=== PATIENT | female | born 2005 | race Caucasian/White ===

== ENCOUNTER 2025-05-02 13:11 | Outpatient (AMB) | payer OTHER, SELFPAY ==
--- NOTE | 2025-05-02 13:13 | MHC.PC.OV ---
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: No Accompanied by: Mother Allergies cat dander (cats) Allergy (Mild, Verified 05/02/25 13:24) Itchy Eyes dog dander (dogs) Allergy (Mild, Verified 05/02/25 13:24) Itchy Eyes Medication List - Last Reconciled 05/02/25 by Ioana Thomas PA-C albuterol sulfate 90 mcg/actuation (Ventolin HFA) 1 inh inhalation QID cetirizine (Zyrtec) 10 mg PO DAILY PRN desogestrel-ethinyl estradiol 0.15-0.03 mg (Apri) 1 tab PO DAILY Tobacco use date assessed: 05/02/25 Dental Screening Dental Screen Date: 05/02/25 Did you have a dental visit in the last 12 months?: No Did you have a dental problem in the last 6 months where you did not have access to dental care?: No Was dental information given to patient?: Patient has dentist HPI 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 Presenting for a new patient visit to establish primary care. The patient reports a history of asthma, for which an albuterol inhaler is used as needed, approximately once or twice a week at most. The patient has been taking Apri to regulate historically heavy and painful periods but feels it is no longer helping and may be impacting mental health. 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 The patient has a counselor at school who is seen biweekly, which has been helpful. [facility] Family History Paternal Grandfather Heart attack Paternal Grandmother Stroke Social History Alcohol intake: current Patient Tobacco Use Status: Never used Tobacco e-Cigarette/Vaping Use: Never Used Current occupational status: employed and student Cognitive needs: No Hearing needs: No Vision needs: No Female Reproductive History Menstrual control method: pills Total pregnancies: 0 Questionnaire PHQ-9 Over the last 2 weeks, how often have you been bothered by any of the following problems? 1. Little interest or pleasure in doing things: several days 2. Feeling down, depressed, or hopeless: several days 3. Trouble falling or staying asleep, or sleeping too much: several days 4. Feeling tired or having little energy: several days 5. Poor appetite or overeating: several days 6. Feeling bad about yourself - or that you are a failure or have let yourself or your family down: several days 7. Trouble concentrating on things, such as reading the newspaper or watching television: more than half the days 8. Moving or speaking so slowly that other people could have noticed. Or the opposite - being so fidgety or restless that you have been moving around a lot more than usual: several days 9. Thoughts that you would be better off or of hurting yourself in some way: not at all Total score: 9 Depression Screening Interpretation: Positive Depression Screening Follow-up: Existing condition and In treatment Depression Screening Done: Yes 22473 - PHQ-9 Billing: Yes Source: Developed by Drs. Hung Beltre, Robina Powell, John White and colleagues, with an educational porsha from [employer]. Thrive Questionnaire Date Thrive assessed: 05/02/25 I am a: Patient What is your living situation today?: I have a steady place to live Within the past 12 months, did the food you bought not last and you didn't have the money to get more?: Never true Within the past 12 months, did you worry whether your food would run out before you got money to buy more?: Never true Do you have trouble paying for medicines?: No Do you have trouble getting transportation to medical appointments?: No Do you have trouble paying your heating and electricity bill?: No Do you have trouble taking care of your child, family member or friend?: No Do you have trouble with day-to-day activities such as bathing, preparing meals, shopping, managing finances, etc.?: No Are you currently unemployed and looking for a job?: No Are you interested in more education?: Yes Please select the resources that you would like help with: None Currently or been in a relationship where the following occur: No concerns reported THRIVE Score: 0 AUDIT C Alcohol Use Questionnaire (AUDIT-C) 1. How often do you have a drink containing alcohol?: Monthly or less 2. How many drinks containing alcohol do you have on a typical day when you are drinking?: 1 or 2 3. How often do you have six or more drinks on one occasion?: Never Total Score: 1 Score Reviewed/Action Taken: Yes RITA-7 AMB Questionnaire RITA-7 Date RITA - 7 assessed: 05/02/25 Feeling nervous, anxious, or on edge: 1 = Several days Not being able to stop or control worryin = Several days Worrying too much about different things: 1 = Several days Trouble relaxin = Several days Being so restless that it is hard to sit still: 1 = Several days Becoming easily annoyed or irritable: 1 = Several days Feeling afraid as if something awful might happen: 1 = Several days Total RITA-7 score (0-4 normal; 5-9 mild; 10-14 moderate; 15-21 severe): 7 Source: Developed by Drs. Hung Beltre, Robina Powell, John White and colleagues, with an educational porsha from [employer]. RITA-7 Assessment Billing RITA-7 Assessment Tool: RITA-7 Assessment 95232 Review of Systems Const Denies body aches, Denies chills, Denies fever(s), Denies headache(s) and Denies poor appetite Eyes Reports no additional complaints ENT Denies dysphagia, Denies dizziness, Denies headache(s) and Denies odynophagia Card Denies chest pain, Denies syncope, Denies edema, Denies irregular heart rhythm, Denies lightheadedness and Denies dyspnea Resp Denies cough and Denies dyspnea GI Denies abdominal pain, Denies constipation, Denies dysphagia, Denies diarrhea, Denies nausea, Denies odynophagia and Denies vomiting Reports no additional complaints Musc Reports no additional complaints and Denies abnormal gait Skin/Breast Reports system reviewed and no additional complaints, except as documented Neuro Denies abnormal gait, Denies dizziness, Denies syncope and Denies headache(s) Psych Reports no additional complaints Physical exam (Primary Care) Vital Signs: Last Vital Signs Pulse 86 05/02/25 13:18 Resp 18 05/02/25 13:18 BP 100/66 05/02/25 13:18 Pulse Ox 99 05/02/25 13:18 Oxygen Delivery Method Room Air 05/02/25 13:18 BMI result Body Mass Index 21.2 Tobacco/Smoking Status: Tobacco use Status Tobacco use date assessed 05/02/25 05/02/25 13:27 Patient Tobacco Use Status Never used Tobacco 05/02/25 13:27 e-Cigarette/Vaping Use Never Used 05/02/25 13:27 PHQ-9: PHQ-9 Score PHQ-9: Total score 9 05/02/25 14:57 Depression Screening Interpretation: Positive Depression Screening Follow-up: Existing condition and In treatment Thrive Assessment: Date of Thrive Assessment Date Thrive assessed 05/02/25 05/02/25 13:27 Currently or been in a relationship where the following occur: No concerns reported Const General: cooperative, healthy appearing, comfortable and no acute distress Orientation/consciousness: patient oriented x3 HENMT Head: Yes normocephalic Ears: hearing grossly normal bilaterally General nose exam: Normal external nose present Eyes General: appearance normal, both eyes and all related structures Conjunctivae: conjunctivae normal Neck Neck: Yes full ROM and Yes no lymphadenopathy Resp Effort & Inspection: normal respiratory effort Auscultation: clear to auscultation bilaterally, no crackles, no rales, no rhonchi and no wheezes Cardio Rate: regular rate Rhythm: regular rhythm Skin General skin exam: no rashes or lesions noted Neuro General: patient oriented x3 Gait exam (Neuro): Normal gait present Extrem General: Yes normal to inspection, Yes full ROM and No edema Psych Affect: normal affect Attitude: cooperative Insight: Good insight present (Psych) Judgement: Good judgement present (Psych) Office Procedures Flu Questionnaire Does the patient have a severe egg allergy?: No Does the patient have severe life threatening allergies?: No Does the patient have a fever or illness today?: No Has the patient ever had Guillain-[place] Syndrome?: No Has the patient ever had any past reaction to a flu shot?: No Immunizations Fluarix [id number] (PF) 45 mcg (15 mcg x 3)/0.5 mL IM syringe Performing Provider: Ioana Thomas PA-C [facility] Administered by: TRAN Jordan on 05/02/25 13:58 Dose Route Admin Location Dispensed Lot Number Expiration Date NDC Data Entry 0.5 mL IM Left Deltoid 0.5 mL [id number] 11/28/25 [id number] [employer] VIS Given Date VIS Provided VIS Publication Date 05/02/25 Single Vaccine 24 Eligibility Eligibility Date Funding Source Not [facility] Eligible 05/02/25 Private Coding Level of Care Code New Pt Level 4 (81152) Diagnoses Depression F32.A Anxiety F41.9 Asthma J45.909 Contraceptive management Z30.9 Additional Codes RITA-7 Assessment Billing - RITA-7 Assessment Tool: RITA-7 Assessment 65533 ([id number]) PHQ-9 - 55993 - PHQ-9 Billing: Yes ([id number]) Assessment & Plan Assessment & Plan (1) Depression: Comment: Zachary Timmons at [facility] biweekly Code(s): F32.A - Depression, unspecified Category: Medical Plan: The patient endorsed a positive depression screen, which is attributed to a lack of motivation and significant academic stress. The patient is engaged in biweekly counseling and finds it helpful, declining pharmacotherapy at this time. Non-pharmacologic stress management techniques were recommended, including deep breathing. (2) Anxiety: Comment: Zachary Timmons at [facility] biweekly Code(s): F41.9 - Anxiety disorder, unspecified Category: Medical Plan: See above (3) Asthma: Code(s): J45.909 - Unspecified asthma, uncomplicated Category: Medical Plan: Asthma currently controlled on present medications. Continue on albuterol as needed.? Avoid triggers such as allergies. (4) Contraceptive management: Code(s): Z30.9 - Encounter for contraceptive management, unspecified Category: Medical Plan: The patient wants to discontinue Apri oral contraceptive pills, citing concerns about mood effects and lack of efficacy for period regulation. The patient was counseled that stopping the medication without a taper is acceptable and was advised about potential for menstrual irregularities for up to six months. The importance of safe sex for STD prevention was also discussed. The medication will be removed from the patient's active medication list. Plan This note was constructed using voice recognition software. While every effort has been made to ensure accuracy and ticket taker, still areas may have been included sometimes these areas may affect the content or meeting of the given symptoms. Total time spent caring for the patient today was 30 minutes. This includes time spent before the visit reviewing the chart, time spent during the visit, and time spent after the visit and documentation. Patient was informed and verbally consented to the use of an ambient scribe for clinic note documentation during this visit. Orders: Orders Vitamin B12 and Folate 05/02/25 J45.909 - Unspecified asthma, uncomplicated, Z13.21 - Encounter for screening for nutritional disorder Complete Blood Count Auto Diff 05/02/25 J45.909 - Unspecified asthma, uncomplicated, Z13.0 - Encounter for screening for diseases of the blood and blood-forming organs and certain disorders involving the immune mechanism CT NG by PCR Urine 05/02/25 Z11.3 - Encounter for screening for infections with a predominantly sexual mode of transmission Influenza [id number] Immunization 05/02/25 Z23 - Encounter for immunization TSH reflex Free T4 05/02/25 J45.909 - Unspecified asthma, uncomplicated, Z13.29 - Encounter for screening for other suspected endocrine disorder Vitamin D 25-OH Total 05/02/25 J45.909 - Unspecified asthma, uncomplicated, Z13.21 - Encounter for screening for nutritional disorder Comprehensive Met. Panel 05/02/25 J45.909 - Unspecified asthma, uncomplicated, Z00.00 - Encounter for general adult medical examination without abnormal findings UA CC w/rflx Micro + Cult 05/02/25 R35.89 - Other polyuria Referrals JOURNALIST Referral Z12.4 - Encounter for screening for malignant neoplasm of cervix
[2025-05-02 13:18] VITALS: BP 100/66; PULSE 86; RESP 18; O2SAT 99; BMI 21.2
--- OUTSIDE RECORDS SUMMARY | 2025-05-02 15:09 | XMS_ITS ---
Author Name [facility] Organization Unknown Care Team Organization Name Specialty Phone Email Start Date End Da te [facility] Rachael Roberto Primary Care 09/02/2022 01/18/20 [facility] Fabiana Harrington Primary Care 04/08/202212/30
--- OUTSIDE RECORDS SUMMARY | 2025-05-02 15:09 | XMS_ITS | Clinical Summary ---
Author Organization [address] [place] [address] [place] [id number] Phone Care Team Providers Care Clearing Supervisor Name Role Phone Julia Allen NP Primary Care Provider [phone] Allergies Active Allergy Reactions Criticality Noted Date Comments Other 02/24/2024 Medications fluticasone propionate (FLONASE) 50 mcg/actuation nasal spray SPRAY 1 SPRAY INTO EACH NOSTRIL DAILY 32 mL 1 04/18/2024 Active albuterol HFA (PROAIR HFA ; PROVENTIL HFA ; VENTOLIN HFA) 90 mcg/actuation inhaler Inhale 2 Puffs into the lungs every 4 hours as needed for Cough or Wheezing. 02/24/2024 Active cetirizine (ZyrTEC) 10 mg tablet TAKE 1 TABLET BY MOUTH EVERY DAY 08/05/2023 Active desogestreL-eth inyl estradioL (Apri) 0.15-0.03 mg per tablet TAKE 1 TABLET BY MOUTH EVERY DAY 84 tablet 02/27/2025 Active Active Problems Problem Noted Date Diagnosed Date Intermenstrual bleeding 06/28/2024 Assessment & Plan (06/28/2024 3:20 PM EST): I counseled Kate that this can happen at times of high stress or even without. If it is not an ongoing problem, no reason for further evaluation. I recommended she work on stress reduction with pressure points at work and regular use of her yoga. She agreed to call if recurs. COVID-19 virus infection 06/11/2021 Overview (04/27/2024): Positve at home test 06/16/21 + PCR Acne vulgaris 04/21/2016 Overview (04/27/2024): 06/20 skin care Gastroesophageal reflux disease without esophagi tis 06/10/2015 Overview (04/27/2024): 04/15 Started on prilosec, unable to wean 06/12/16: seen by siva Urbina, slowly wean off of prilosec and check if sx resume. Lactose breath test. If sx resume s/p wean, consider upper endoscopy. 07/28/16: neg lactose breath test. Sx resumed after 2 weeks of weaning off of prilosec. Schedule upper endoscopy, ph impedance probe. F/u 2 weeks after procedure 08/04/16: nl upper endoscopy, multiple biopsies taken, c/w reflux esophagitis. Ph probe, significant acid reflux. Omeprazole 40 mg po qd, avoid food triggers, obtain gastrin level, f/u 3 months Scoliosis 04/17/2015 Overview (04/27/2024): 04/15 Nl xray 04/16: 13 degree curvature. Post menarche 06/20 no change 09/20 no change Seasonal allergies 11/02/2011 Overview (04/27/2024): 06/27/15: mildy positive allergy testing to dog dander, shital grass, otherwise negative Other constipation 10/26/2009 Encounters Date Type Department Care Team Description 02/26/2025 Telephone Pediatrics - [place] [address] [place] [address] Julia Allen NP from Last 3 Months Immunizations Immunization Administration Dates Next Due DTaP (Infanrix) 6wks to less than 7yo ,05/02/2004,03/18/2004,01/18 DTaP / Hib 02/17/2005 ULpF-UIM-XOH (Pentacel) 2mo to less than 5yo 05/22/2004,03/18/2004,01/19/2004 H1N1 Inj Preservative Free 09/06/2009,06/07/2009 HPV 9-valent (Gardisil) 9yo to less than 46yo 09/17/2015,06/08/2015,04/17/2015 Hepatitis B Pediatric (Enger ix B; Recombivax HB) to less than 20 yo 08/16/2004,2003,2003 IPV Inactivated polio (Ipol) 6wks and older 01/05/2008,08/16/2004,03/18/2004,01/18 Influenza Quadrivalent, 0.5m l, preservative free (Fluarix; FluLaval; Fluzone) ages 6mo and older (Afluria) 3yo and older 03/26/2021,04/05/2019,03/04/2018 Influenza Quadrivalent, with preservative (Fluzone; Afluria) 6mo and older 03/22/2020 Influenza trivalent, 0.5mL, preservative free (Fluarix; FluLaval; Fluzone) ages 6mo and older (Afluria) 3 years and older 02/23/2017,03/29/2016,03/21/2015,04/13 Influenza trivalent, with pr eservative (Fluzone; Afluria) 6mo and older 04/11/2013,03/22/2012,02/26/2011,02/06,06/07/2009 MMR, measles mumps and rubel la Live (Priorix; M-M-R II) 12mo and older 02/02/2009,02/17/2005 Meningococcal MCV4P 07/26/2020,04/17/2015 Pneumococcal Conjugate Vacci ne, 7 Valent 11/27/2004,05/21/2004,03/18/2004,01/18 Tdap Tetanus diptheria acell ular pertussis (Boostrix; Adacel) 7yo and older 11/23/2014 Varicella live (Varivax) 12m o and older 02/02/2009,11/27/2004 Surgical History Surgery Date Site/Laterality Comments OTHER SURGICAL HISTORY PROCEDURE: DENIES PREVIOUS SURGERY Medical History Medical History Date Comments 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 D X:Failure to thrive in childhood; COMMENT: poor wt gain after 12 mos Acute suppurative otitis med ia without spontaneous rupture of eardrum 11/25/2005 DX:Acute suppurative ot itis media without spontaneous rupture of eardrum; COMMENT: 09/03, 04/05, 04/07, 08/14 rigth zithromax 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 Middleton. Nl spirometry. Without major change post albuterol. Sinus and chest xray negative IgE 77 (nl) /RAST (nl) empirically started on Advair 250 BId for 2 weeks. F/u 2 weeks Eczema 04/11/2013 DX:Eczema History of early menarche 01/31/2016 DX:His tory of early menarche Amblyopia of left eye 02/26/2011 DX:Amblyop ia of left eye; COMMENT: 04/14: no more glasses 05/15: next appt COVID-19 virus infection 06/11/2021 DX:COVI D-19 virus infection; COMMENT: Positve at home test 06/16/21 + PCR Hypovitaminosis D 04/26/2018 DX:Hypovitamin osis D; COMMENT: 04/18 Level 10. Given 50,000 IU weekly x 6 weeks then recehck labs. 06/19 Up to 93. Will have her take Vitamin D 1000 IU every other day 06/20 Rechecking lab Family History Medical History Relation Name Comments Allergies Father pgf Asthma Father Other: hyperthroid Father radiation and on replacement Eczema Father's side Other: heart Other 1 paternal uncle Other cancer Other 2 Hypertension Paternal Grandfather Diabetes Paternal Grandmother Relation Name Status Comments Father Alive 03/14/84 Father's side Mother Alive 09/21/83 Other 1 Other 2 Paternal Grandfather Paternal Grandmother Social History Tobacco Use Types Packs/Day Years Used Date Smoking Tobacco: Never Smokeless Tobacco: Never Alcohol Use Standard Drinks/Week Comments No 0 (1 standard drink = 0.6 oz pur e alcohol) Comments No Sex and Gender Information Value Date Recorded Sex Assigned at Female 04/13/2025 2:24 PM EST Legal Sex Female 3:41 PM EST Gender Identity Female 04/13/2025 2:24 PM EST Sexual Orientation Not on file Obstetrics History Last Filed Vital Signs Vital Sign Reading Time Taken Comments Blood Pressure 110/70 06/28/2024 2:58 PM EST Pulse 80 06/28/2024 2:58 PM EST Temperature 38.6 C (101.5 F) 04/11/2024 1:56 PM EST Respiratory Rate 16 06/28/2024 2:58 PM EST Oxygen Saturation 98% 04/11/2024 1:56 PM EST Inhaled Oxygen Concentration - - Weight 56.2 kg (124 lb) 06/28/2024 2:58 PM EST Height 157.5 cm (5' 2 ) 06/28/2024 2:58 PM EST Body Mass Index 22.68 06/28/2024 2:58 PM EST Plan of Treatment Health Maintenance Due Date Last Done Comments Meningococcal B Vaccine (1 of 2 - Standard) 2019 HIV Screening 05/10/2022 Hepatitis C Screening 05/10/2022 Social Influencers of Health Screening 05/10/2022 Depression Screening 06/01/2024 10/09/2023 Annual Well Child Visit (3-21 years old) 10/08/2024 10/09/2023, 09/18/2022, 09/16/2021, Additional history exists Gonorrhea/Chlamydia Screening 10/08/2024 10/09/2023 Cervical Cancer Screening: Pap Smear 11/16/2024 DTaP,Tdap,and Td Vaccines (7 - Td or Tdap) 11/23/2024 11/23/2014, 01/05/2008, 02/17/2005, Additional history exists COVID-19 Vaccine ( - season) 2025 Influenza Vaccine (#1) 2025 , 03/26/2021, 03/22/2020, Additional history exists RSV Immunization Adult Patients (1 - 1-dose 75+ series) 11/16/2078 Hepatitis B Vaccines Completed 08/16/2004, 2003, 2003 Pneumococcal Vaccine: Pediatrics (0 to 5 Years) and At-Risk Patients (6 to 49 Years) Completed 11/27/2004, 05/21/2004, 03/18/2004, Additional history exists HIB Vaccines Completed 02/17/2005, 05/02, 05/22/2004, Additional history exists IPV Vaccines Completed 01/05/2008, 07/30, 05/22/2004, Additional history exists MMR Vaccines Completed 02/02/2009, 02/17/2005 Varicella Vaccines Completed 02/02/2009, 11/27/2004 HPV Vaccines Completed 09/17/2015, 12/2015, 04/17/2015 Meningococcal ACWY Vaccine Completed 07/26/2020, Hepatitis A Vaccines Aged Out No long er eligible based on patient's age to complete this topic RSV Immunization Patients Under 20 months Aged Out No longer eligible based on patient's age to complete this topic Procedures Procedure Name Priority Date/Time Associated Diagnosis Comments DEPRESSION SCREENING Routine 10/09/2023 GONORRHEA/CHLAMYDIA SCRREENING Routine 10/09/2023 from Last 3 Months or Most Recently Relevant to Health Maintenance Results * Depression Screening (10/09/2023) Depression Screening abstracted Historical Provider MD HEALTH MAINTENANCE Final Result * Gonorrhea/Chlamydia Screening (10/09/2023) Gonorrhea/Chla mydia Screening abstracted us Historical Provider MD HEALTH MAINTENANCE Final Result from Last 3 Months or Most Recently Relevant to Health Maintenance Insurance [facility] [employer] Care Teams Clearing Supervisor Relationship Specialty Start Date End Date Julia Allen NP [address] [place] [phone] PCP - General Pediatrics 11/09/19
== END 2025-05-02 14:01 | disposition home or self-care (01) ==
LOC: HO.HMCH 13:12
DX: Z23 Encounter for immunization (principal)

== ENCOUNTER → 2025-05-02 13:11 | Outpatient (BNVA) | payer OTHER, SELFPAY | DX: F32.A Depression, unspecified (principal); F41.9 Anxiety disorder, unspecified; J45.909 Unspecified asthma, uncomplicated; Z13.31 Encounter for screening for depression; Z13.39 Encounter for screening examination for other mental health and behavioral disorders; Z30.9 Encounter for contraceptive management, unspecified; Z13.0 Encounter for screening for diseases of the blood and blood-forming organs and certain disorders involving the immune mechanism; Z13.29 Encounter for screening for other suspected endocrine disorder; R35.89 Other polyuria; Z12.4 Encounter for screening for malignant neoplasm of cervix; Z23 Encounter for immunization | CPT/HCPCS: 90471; 90656; 96127; 99202 ==